=== PATIENT | female | born 2000 | race Caucasian/White ===

== ENCOUNTER 2021-09-10 21:02 | Emergency (ER) | payer OTHER ==
[2021-09-10 21:25] LABS: BASOPHILS % (AUTO) 0.2 %; EOSINOPHILS # (AUTO) 0.1 10^3/uL (0.0-0.7); EOSINOPHILS % (AUTO) 0.8 %; HGB - HEMOGLOBIN 12.6 g/dL (12.0-16.0); LYMPHOCYTES # (AUTO) 1.8 10^3/uL (1.5-3.5); LYMPHOCYTES % (AUTO) 29.7 %; MEAN CORPUSCULAR HEMOGLOBIN 30.5 pg (27.0-31.0); MEAN CORPUSCULAR HGB CONC 33.2 g/dL (32.0-36.0); MEAN PLATELET VOLUME 9.8 fL (7.9-10.8); MONOCYTES # (AUTO) 0.7 10^3/uL (0.0-1.0); MONOCYTES % (AUTO) 11.2 %; NEUTROPHILS # (AUTO) 3.6 10^3/uL (1.5-6.6); NEUTROPHILS % (AUTO) 57.8 %; PLT - PLATELET COUNT 223 10^3/uL (130-450); RED BLOOD COUNT 4.13 10^6/uL (4.20-5.40); RED CELL DISTRIBUTION WIDTH 11.4 % (12.0-15.0); WHITE BLOOD COUNT 6.2 x10^3/uL (4.8-10.8)
[2021-09-10 21:43] LABS: ALBUMIN 4.3 g/dL (3.2-5.5); ALBUMIN/GLOBULIN RATIO 1.2 (1.0-2.2); BILIRUBIN,TOTAL 0.6 mg/dL (0.2-1.0); CALCIUM 9.2 mg/dL (8.5-10.3); CREATININE 0.7 mg/dL (0.4-1.0); POTASSIUM 3.6 mmol/L (3.5-5.0); TOTAL PROTEIN 7.9 g/dL (6.7-8.2)
--- NOTE | 2021-09-10 21:54 | XRAY Report ---
PROCEDURE: Chest 1 View X-Ray INDICATIONS: Chest pain TECHNIQUE: One view of the chest was acquired. COMPARISON: None FINDINGS: Surgical changes and devices: None. Lungs and pleura: No pleural effusions or pneumothorax. Lungs are clear. Mediastinum: Mediastinal contours appear normal. Heart size is normal. Bones and chest wall: No suspicious bony lesions. Overlying soft tissues appear unremarkable. IMPRESSION: No acute cardiopulmonary pathology. Reviewed by: Walter Arndt MD on 09/10/2021 9:53 PM [facility] Approved by: Walter Arndt MD on 09/10/2021 9:53 PM [facility] Station ID: [id number]
--- NOTE | 2021-09-10 23:32 | ED Physician Documentation ---
PD HPI CHEST PAIN - Stated complaint Stated Complaint: CHEST PX,SOA - Chief complaint Chief Complaint: Cardiac - History obtained from History obtained from: Patient - History of Present Illness Timing - onset: How many weeks ago (1) Timing - onset during: Light activity (noted onset of this a few hours after working out in gym last week. Discomfort has continued despite activity. Some worse lying down at night. Has had most discomfort with eating.) Timing - duration: Weeks (1) Timing - details: Abrupt onset, Still present Quality: Aching, Indigestion, Pain Location: Substernal, Epigastric Radiation: Back. No: Jaw, Neck Improved by: Nothing Worsened by: Eating. No: Inspiration, Movement Associated symptoms: Nausea. No: Shortness of air, General Weakness, Palpitations Similar symptoms before: Has not had sx before Recently seen: Not recently seen Review of Systems Constitutional: denies: Fever Nose: denies: Rhinorrhea / runny nose, Congestion Throat: denies: Sore throat Respiratory: denies: Cough GI: reports: Abdominal Pain, Nausea. denies: Vomiting, Diarrhea, Bloody / black stool Skin: denies: Rash, Lesions Neurologic: denies: Generalized weakness, Near syncope PD PAST MEDICAL HISTORY - Past Medical History Past Medical History: No - Past Surgical History Past Surgical History: No - Present Medications Home Medications: Ambulatory Orders Medication Instructions Recorded Confirmed Famotidine [Pepcid] 20 mg PO BID 10 Days #20 tablet 09/11/21 Lidocaine Viscous 2% [Xylocaine 5 ml PO Q4H PRN #100 ml 09/11/21 Viscous 2%] Ondansetron Odt [Zofran] 4 mg TL Q6H PRN #10 tablet 09/11/21 Sucralfate [Carafate] 1 gm PO ACHS #20 tablet 09/11/21 - Allergies Allergies/Adverse Reactions: Allergies Allergy/AdvReac Type Severity Reaction Status Date / Time No Known Drug Allergies Allergy Verified 09/10/21 21:12 - Social History Does the pt smoke?: Yes Smoking Status: Current every day smoker Does the pt drink ETOH?: No Does the pt have substance abuse?: No - Immunizations Immunizations are current?: Yes - POLST Patient has POLST: No PD ED PE NORMAL - Vitals Vital signs reviewed: Yes - General General: Alert and oriented X 3, No acute distress, Well developed/nourished - Cardiac Cardiac: RRR, No murmur - Respiratory Respiratory: Clear bilaterally, Other (no chestwall tenderness) - Abdomen Abdomen: Normal bowel sounds, Soft, Non distended, No organomegaly, Other (tender without guarding in epigastric area. No percussion tenderness. ) - Back Back: No CVA TTP - Derm Derm: Normal color, Warm and dry - Extremities Extremities: Normal ROM s pain, No edema, No calf tenderness / cord - Neuro Neuro: Alert and oriented X 3, No motor deficit, Normal speech Results - Vitals Vitals: Oxygen O2 Source Room air - EKG (time done) 2104 Rate: Rate (enter#) (109) Rhythm: Sinus tachycardia [place]: Normal Intervals: Normal [place] QRS: Normal Ischemia: Normal ST segments. No: ST elevation c/w ischemia, ST depression Compare to prior EKG: Old EKG unavailable Computer interpretation: Agree with computer - Labs Labs: Laboratory Tests 09/10/21 09/10/21 09/10/21 21:19 21:19 21:19 WBC 6.2 RBC 4.13 L Hgb 12.6 Hct 38.0 MCV 92.0 MCH 30.5 MCHC 33.2 RDW 11.4 L Plt Count 223 MPV 9.8 Neut # (Auto) 3.6 Lymph # (Auto) 1.8 [place] # (Auto) 0.7 Eos # (Auto) 0.1 Baso # (Auto) 0.0 Absolute Nucleated RBC 0.00 Nucleated RBC % 0.0 Sodium 135 Potassium 3.6 Chloride 98 L Carbon Dioxide 29 Anion Gap 8.0 BUN 10 Creatinine 0.7 Estimated GFR (MDRD) 107 Glucose 95 Calcium 9.2 Total Bilirubin 0.6 AST 25 ALT 17 Alkaline Phosphatase 46 Troponin I High Sens < 2.3 L Total Protein 7.9 Albumin 4.3 Globulin 3.6 Albumin/Globulin Ratio 1.2 Lipase 21 L - Rads (name of study) chest Radiology: Prelim report reviewed (no acute process), See rad report PD MEDICAL DECISION MAKING - ED course Complexity details: considered differential (not really chest pain so much as epigastric pain. Seems some element of reflux. She claims heartburn/reflux often in the past, and currently seems more consistent gastritis/esophagitis. ), d/w patient Departure - Departure Disposition: 01 Home, Self Care Clinical Impression: Epigastric pain Condition: Stable Instructions: ED PUD Vs Gastritis Follow-Up: [facility] [Provider Group] Prescriptions: Sucralfate [Carafate] 1 gm PO ACHS #20 tablet Famotidine [Pepcid] 20 mg PO BID 10 Days #20 tablet Lidocaine Viscous 2% [Xylocaine Viscous 2%] 5 ml PO Q4H PRN #100 ml PRN Reason: Pain Ondansetron Odt [Zofran] 4 mg TL Q6H PRN #10 tablet PRN Reason: Nausea / Vomiting Comments: Try to stay well-hydrated. Minimize caffeine intake and also limit spicy foods. Use famotidine acid reducing medicine twice daily for the next 10 days. Also sucralfate to coat the stomach before meals and bedtime for the next several days as well. Follow the prescription instructions. To this add antacid such as Tums Maalox or Mylanta. Along with that you can use some 5 mL of viscous lidocaine to help with the stomach pains. Tylenol 500 mg 4 times a day can be used for pains. You can use the hydrocodone pain medicine we gave in the prepack this evening every 6-8 hours if needed for pain in the first day or 2. Do not use any anti-inflammatories such as ibuprofen or naproxen as that can further irritate your stomach. I would anticipate improvement over the next several days and resolution by 5 to 7 days. Follow-up with your primary care clinic if not improving in that timeframe and return if worse. If not improved well, subsequent evaluation could include arranging for scope of the stomach outpatient to evaluate for ulcer. Other testing possible would be a stool test to evaluate for an infectious process called H. pylori. These further tests are infrequently needed and so if you are improved in the short- term with the above medications, then no further testing is necessarily needed. You could rest off work the next day or 2 while initiating medications. [facility] Forms: Activity restrictions Discharge Date/Time: 09/11/21 00:34
[2021-09-10] MEDS: FAMOTIDINE 20 MG TABLET PO STA (23:57)
[2021-09-10] MEDS: LIDOCAINE VISCOUS 2% 15 ML UDC MM STA (23:57)
[2021-09-10] MEDS: MAG HYDROX/AL HYDROX/SIMETH 30 ML UDC PO STA (23:57)
[2021-09-10] MEDS: HYDROcod/ACET 5/325 Prepack 4 PO STA (23:58)
[2021-09-10] MEDS: HYDROcod/ACETAM 5/325 MG TABLET PO STA (23:58)
[2021-09-11 00:34] VITALS: BP 120/57
== END 2021-09-11 00:34 | disposition home or self-care (01) ==
LOC: ED 21:02
DX: R10.13 Epigastric pain (principal); F17.200 Nicotine dependence, unspecified, uncomplicated
CPT/HCPCS: 36415; 71045; 80053; 83690; 84484; 85025; 93005; 99284; A9270

== ENCOUNTER 2024-01-10 08:00 | Outpatient (CLI) | payer OTHER ==
[2024-01-10 16:19] LABS: BILIRUBIN,URINE NEGATIVE (NEGATIVE); GLUCOSE, URINE (UA) NEGATIVE (NEGATIVE); KETONES,URINE (UA) NEGATIVE (NEGATIVE); LEUKOCYTE ESTERASE, URINE NEGATIVE (NEGATIVE); NITRITE,URINE NEGATIVE (NEGATIVE); OCCULT BLOOD,URINE TRACE-INTA (NEGATIVE); PH,URINE 6.5 PH (5.0-7.5); PROTEIN,URINE NEGATIVE (NEGATIVE); UROBILINOGEN,URINE 0.2 (NORMAL) E.U./dL (NORMAL)
[2024-01-10 16:24] LABS: CLARITY,URINE CLEAR (CLEAR)
[2024-01-10 17:30] LABS: BACTERIA,URINE None Seen /HPF (None Seen); RBC,URINE 0-5 /HPF (0-5); SQUAMOUS EPITHELIAL CELL,UR FEW Squamous (<= Few); WBC,URINE 0-3 /HPF (0-5)
== END 2024-01-10 23:59 | disposition home or self-care (01) ==
LOC: LAB.WC 08:00
PROVIDERS: ATTEND Nurse Practitioner
DX: O09.91 Supervision of high risk pregnancy, unspecified, first trimester (principal)
CPT/HCPCS: 81001; 87086

== ENCOUNTER 2024-01-21 14:24 | Emergency (ER) | payer OTHER ==
[2024-01-21 15:22] LABS: BASOPHILS % (AUTO) 0.2 %; EOSINOPHILS # (AUTO) 0.2 10^3/uL (0.0-0.7); EOSINOPHILS % (AUTO) 1.9 %; HCT - HEMATOCRIT 36.3 % (37.0-47.0); HGB - HEMOGLOBIN 11.6 g/dL (12.0-16.0); LYMPHOCYTES # (AUTO) 2.2 10^3/uL (1.5-3.5); MEAN CORPUSCULAR HEMOGLOBIN 29.7 pg (27.0-31.0); MEAN CORPUSCULAR VOLUME 92.8 fL (81.0-99.0); MEAN PLATELET VOLUME 10.4 fL (7.9-10.8); MONOCYTES # (AUTO) 0.9 10^3/uL (0.0-1.0); NEUTROPHILS # (AUTO) 9.4 10^3/uL (1.5-6.6); NEUTROPHILS % (AUTO) 73.5 %; PLT - PLATELET COUNT 270 10^3/uL (130-450); RED BLOOD COUNT 3.91 10^6/uL (4.20-5.40); RED CELL DISTRIBUTION WIDTH 11.7 % (12.0-15.0); WHITE BLOOD COUNT 12.8 x10^3/uL (4.8-10.8)
[2024-01-21 15:35] LABS: ALBUMIN 3.8 g/dL (3.2-5.5); ALBUMIN/GLOBULIN RATIO 1.5 (1.0-2.2); ALKALINE PHOSPHATASE 47 IU/L (42-121); ALT ALANINE AMINOTRANSFERASE 13 IU/L (10-60); AST ASPARTATE AMINOTRANSFERASE 16 IU/L (10-42); BILIRUBIN,TOTAL 0.2 mg/dL (0.2-1.0); BUN - BLOOD UREA NITROGEN 9 mg/dL (6-20); CALCIUM 9.3 mg/dL (8.5-10.3); CARBON DIOXIDE - CO2 26 mmol/L (21-32); CHLORIDE 102 mmol/L (101-111); CREATININE 0.5 mg/dL (0.6-1.3); GFR - MDRD 154 (>89); GLUCOSE 83 mg/dL (74-104); POTASSIUM 3.4 mmol/L (3.5-4.5); SODIUM 135 mmol/L (135-145); TOTAL PROTEIN 6.4 g/dL (6.4-8.9)
[2024-01-21 15:38] LABS: LIPASE < 10 U/L (11-82)
[2024-01-21 17:30] LABS: BILIRUBIN,URINE NEGATIVE (NEGATIVE); GLUCOSE, URINE (UA) NEGATIVE (NEGATIVE); KETONES,URINE (UA) NEGATIVE (NEGATIVE); LEUKOCYTE ESTERASE, URINE TRACE (NEGATIVE); NITRITE,URINE NEGATIVE (NEGATIVE); OCCULT BLOOD,URINE TRACE-INTA (NEGATIVE); PH,URINE 6.5 PH (5.0-7.5); PROTEIN,URINE NEGATIVE (NEGATIVE); UROBILINOGEN,URINE 0.2 (NORMAL) E.U./dL (NORMAL)
[2024-01-21 17:31] LABS: CLARITY,URINE CLEAR (CLEAR)
[2024-01-21 17:49] LABS: BACTERIA,URINE Few /HPF (None Seen); RBC,URINE 0-5 /HPF (0-5); SQUAMOUS EPITHELIAL CELL,UR FEW Squamous (<= Few)
--- NOTE | 2024-01-21 19:15 | ED Physician Documentation ---
PD HPI ABD PAIN - Stated complaint Stated Complaint: LOW RT ABD PX - Chief complaint Chief Complaint: Abd Pain - History obtained from History obtained from: Patient - Additional information Additional information: 23-year-old female who is approximately 9 weeks with twins at and has already had a first trimester ultrasound showing IUP presents with right lower pelvis pain that has been intermittent for the last couple of days, it is a pressure type sensation, sometimes more sharp. She feels some pressure when she has to urinate, denies dysuria urgency or frequency, no atypical vaginal discharge, no fever or flank pain. She has not had nausea or vomiting. She denies any vaginal discharge. She has not attempted any treatment for this issue. PD PAST MEDICAL HISTORY - Past Medical History Past Medical History: No - Past Surgical History Past Surgical History: No - Present Medications Home Medications: Ambulatory Orders Medication Instructions Recorded Confirmed Famotidine [Pepcid] 20 mg PO BID 10 Days #20 tablet 09/11/21 Lidocaine Viscous 2% [Xylocaine 5 ml PO Q4H PRN #100 ml 09/11/21 Viscous 2%] Ondansetron Odt [Zofran] 4 mg TL Q6H PRN #10 tablet 09/11/21 Sucralfate [Carafate] 1 gm PO ACHS #20 tablet 09/11/21 cephALEXin [Keflex] 500 mg PO BID #14 cap 01/21/24 - Allergies Allergies/Adverse Reactions: Allergies Allergy/AdvReac Type Severity Reaction Status Date / Time No Known Drug Allergies Allergy Verified 01/21/24 14:33 - Social History Does the pt smoke?: Yes Smoking Status: Current every day smoker Does the pt drink ETOH?: No Does the pt have substance abuse?: No - Immunizations Immunizations are current?: Yes - POLST Patient has POLST: No PD ED PE NORMAL - Vitals Vital signs reviewed: Yes - General General: Alert and oriented X 3, No acute distress, Well developed/nourished - HEENT HEENT: Atraumatic, Moist mucous membranes - Cardiac Cardiac: RRR - Respiratory Respiratory: No respiratory distress, Clear bilaterally - Abdomen Abdomen: Normal bowel sounds, Soft, Non distended, Other (Today mild tenderness in the low suprapubic region and right pelvis) - Back Back: No CVA TTP, No spinal TTP - Derm Derm: Normal color, Warm and dry Results - Vitals Vitals: Vital Signs - 24 hr 01/21/24 14:28 Temperature 36.2 C L Heart Rate 85 Respiratory 17 Rate Blood Pressure 111/65 O2 Saturation 97 Oxygen O2 Source Room air - Labs Labs: Laboratory Tests 01/21/24 01/21/24 01/21/24 15:08 15:08 17:18 WBC 12.8 H RBC 3.91 L Hgb 11.6 L Hct 36.3 L MCV 92.8 MCH 29.7 MCHC 32.0 RDW 11.7 L Plt Count 270 MPV 10.4 Neut # (Auto) 9.4 H Lymph # (Auto) 2.2 [place] # (Auto) 0.9 Eos # (Auto) 0.2 Baso # (Auto) 0.0 Absolute Nucleated RBC 0.00 Nucleated RBC % 0.0 Sodium 135 Potassium 3.4 L Chloride 102 Carbon Dioxide 26 Anion Gap 7.0 BUN 9 Creatinine 0.5 L Estimated GFR (MDRD) 154 Glucose 83 Calcium 9.3 Total Bilirubin 0.2 AST 16 ALT 13 Alkaline Phosphatase 47 Total Protein 6.4 Albumin 3.8 Globulin 2.6 Albumin/Globulin Ratio 1.5 Lipase < 10 L Beta HCG, Quant > 411974.0 Urine Color YELLOW Urine Clarity CLEAR Urine pH 6.5 Ur Specific [place] 1.010 Urine Protein NEGATIVE Urine Glucose (UA) NEGATIVE Urine Ketones NEGATIVE Urine Occult Blood TRACE-INTA Urine Nitrite NEGATIVE Urine Bilirubin NEGATIVE Urine Urobilinogen 0.2 (NORMAL) Ur Leukocyte Esterase TRACE H Urine RBC 0-5 Urine WBC 4-5 Ur Squamous Epith Cells FEW Squamous Urine Bacteria Few Urine Culture Comments INDICATED - Rads (name of study) No standard instances Relevant Findings:: Prelim report reviewed PD Medical Decision Making - ED course Complexity details: reviewed results, considered differential, d/w patient ED course: This is a well-appearing 23-year-old female who is 9 weeks presents with right to pelvis and suprapubic pain intermittently over the course last couple days as described in HPI. Patient is well-appearing here, afebrile nontoxic, she has no nausea or vomiting, no other concerning symptoms. Differentials considered included UTI, related pains, ovarian cyst or torsion, appendicitis, ureteral stone. Patient's labs reviewed and show possible UTI though only through 4-5 WBCs, and we are awaiting culture. Labs largely unremarkable aside from mild elevation in the white blood cell count 12. A prelim report of the ultrasound reveals a twin , corpus luteum cyst, no acute findings. Will treat the patient for UTI and bacteria in pending culture and think this is likely the cause of her pain though it may be related as well. There is not appear to be torsion and I have low suspicion for appendicitis given the location of the pain and lack of additional symptoms. Patient discharged home in stable condition, advised to follow-up with her PCP or OB in the next week if ongoing symptoms, return if she develops a fever or worsening symptoms. Departure - Departure Disposition: Home, Self Care Clinical Impression: Urinary tract infection Qualifiers: Urinary tract infection type: acute cystitis Hematuria presence: without hematuria Qualified Code(s): N30.00 - Acute cystitis without hematuria Condition: Good Instructions: ED UTI Cystitis Female Prescriptions: cephALEXin [Keflex] 500 mg PO BID #14 cap Comments: Please take the antibiotics as prescribed. I have also sent a urine culture and if this determines we need to give you different antibiotics, we will notify you by phone. You can take Tylenol as needed for the discomfort. Please follow-up with your OB as needed and return if you develop any vaginal bleeding, fever or new concerns. Forms: PCP List
[2024-01-21 19:30] VITALS: BP 100/58; O2SAT 98
--- NOTE | 2024-01-21 21:57 | Ultrasound Report ---
PROCEDURE: OB 1st Trimester w/TV INDICATIONS: 9w IUP, right pelvic pain ? ovarian cyst OUTSIDE/PRIOR DATING DATA: Last menstrual period (LMP): 11/15/2023. LMP-based estimated date of delivery ([facility]): 08/21/2024. First dating scan (date and location): 09/15. Estimated date of delivery ([facility]) from first dating scan: 08/22/2024. TECHNIQUE: Real-time scanning was performed of the fetus and maternal pelvic organs, with image documentation. Endovaginal scanning was also performed to better visualize the fetus and maternal ovaries. COMPARISON: None. FINDINGS: Diamniotic and dichorionic intrauterine gestations are seen. Embryo: Ransom-rump length for twin A measures 2.59 cm with estimated gestational age of 9 weeks, 3 d ays, 27.8%. Ransom-rump length for twin B measures 2.5 cm with estimated gestational age of 9 weeks, 2 days, 23.5% . Heart rate: 169 bpm for twin A and 162 bpm for twin B. Other: No perigestational fluid collection. Measurement variability in dating: +/- 4 weeks by LMP, +/- 7 days by mean sac diameter (use before 6 weeks gestation if crown-rump length not able to be measured), +/- 5 days by crown-rump length (6-12 weeks gestation). Maternal organs: Ovaries appear within normal limits. 2 right-sided corpus luteal cysts are seen paulina sures 1.9 x 1.5 x 1.8 cm, and 1.6 x 1.4 x 2 cm in size. IMPRESSION: 1. Diamniotic and dichorionic intrauterine twin gestations as above. 2. 2 corpus luteal cysts are noted in right ovary as above. Reviewed by: Walter Lamar MD on 01/21/2024 9:56 PM PDT Approved by: Walter Lamar MD on 01/21/2024 9:56 PM PDT Station ID: [id number]
== END 2024-01-21 19:41 | disposition home or self-care (01) ==
LOC: ED 14:24
DX: O23.11 Infections of bladder in pregnancy, first trimester (principal); B96.89 Other specified bacterial agents as the cause of diseases classified elsewhere; O34.81 Maternal care for other abnormalities of pelvic organs, first trimester; N83.11 Corpus luteum cyst of right ovary; O99.331 Smoking (tobacco) complicating pregnancy, first trimester; F17.200 Nicotine dependence, unspecified, uncomplicated; Z3A.09 9 weeks gestation of pregnancy
CPT/HCPCS: 36415; 80053; 81001; 83690; 84702; 85025; 87086; 99284

== ENCOUNTER 2024-02-02 08:00 | Outpatient (CLI) | payer OTHER ==
[2024-02-02 20:52] LABS: CHLAMYDIA TRACHOMATIS DNA NEGATIVE (NEGATIVE); NEISSERIA GONORRHOEAE DNA NEGATIVE (NEGATIVE); TRICHOMONAS VAGINALIS DNA NEGATIVE (NEGATIVE)
== END 2024-02-02 23:59 | disposition home or self-care (01) ==
LOC: LAB.WC 08:00
PROVIDERS: ATTEND Obstetrics & Gynecology
DX: Z11.3 Encounter for screening for infections with a predominantly sexual mode of transmission (principal)
CPT/HCPCS: 87491; 87591; 87661

== ENCOUNTER 2024-03-10 13:58 | Outpatient (CLI) | payer OTHER ==
[2024-03-10 16:19] LABS: THYROID STIMULATING HORMONE 0.79 uIU/mL (0.34-5.60)
== END 2024-03-10 13:59 | disposition home or self-care (01) ==
LOC: LAB 13:58
PROVIDERS: ATTEND Obstetrics & Gynecology
DX: O09.91 Supervision of high risk pregnancy, unspecified, first trimester (principal); O99.891 Other specified diseases and conditions complicating pregnancy; R94.6 Abnormal results of thyroid function studies
CPT/HCPCS: 36415; 82950; 84443

== ENCOUNTER 2024-03-15 16:44 | Outpatient (CLI) | payer OTHER | END 2024-03-15 16:45 | disposition home or self-care (01) | LOC: LAB 16:44 | PROVIDERS: ATTEND Obstetrics & Gynecology | DX: Z36.89 Encounter for other specified antenatal screening (principal) | CPT/HCPCS: 36415; 81511 ==

== ENCOUNTER 2024-04-08 08:25 | Outpatient (CLI) | payer OTHER ==
[2024-04-08 09:03] LABS: BASOPHILS % (AUTO) 0.2 %; EOSINOPHILS # (AUTO) 0.7 10^3/uL (0.0-0.7); EOSINOPHILS % (AUTO) 6.1 %; HCT - HEMATOCRIT 32.1 % (37.0-47.0); HGB - HEMOGLOBIN 10.3 g/dL (12.0-16.0); LYMPHOCYTES # (AUTO) 1.5 10^3/uL (1.5-3.5); LYMPHOCYTES % (AUTO) 12.8 %; MEAN CORPUSCULAR HEMOGLOBIN 30.7 pg (27.0-31.0); MEAN CORPUSCULAR HGB CONC 32.1 g/dL (32.0-36.0); MEAN CORPUSCULAR VOLUME 95.5 fL (81.0-99.0); MEAN PLATELET VOLUME 9.9 fL (7.9-10.8); MONOCYTES # (AUTO) 0.5 10^3/uL (0.0-1.0); MONOCYTES % (AUTO) 4.1 %; NEUTROPHILS # (AUTO) 8.7 10^3/uL (1.5-6.6); NEUTROPHILS % (AUTO) 74.7 %; PLT - PLATELET COUNT 218 10^3/uL (130-450); RED BLOOD COUNT 3.36 10^6/uL (4.20-5.40); RED CELL DISTRIBUTION WIDTH 12.7 % (12.0-15.0); WHITE BLOOD COUNT 11.6 x10^3/uL (4.8-10.8)
[2024-04-09 05:09] LABS: HBsAG SCREEN Negative (Negative)
[2024-04-09 23:07] LABS: HIV SCREEN 4TH GENERATION Non Reactive (Non Reactive)
[2024-04-10 03:07] LABS: HCV AB Non Reactive (Non Reactive)
[2024-04-10 14:08] LABS: VARICELLA-ZOSTER AB IGG 484 index (Immune >165)
== END 2024-04-08 08:26 | disposition home or self-care (01) ==
LOC: LAB 08:25
PROVIDERS: ATTEND Nurse Practitioner
DX: O09.91 Supervision of high risk pregnancy, unspecified, first trimester (principal); Z36.89 Encounter for other specified antenatal screening
CPT/HCPCS: 36415; 85025; 86592; 86762; 86787; 86803; 86850; 86900; 86901; 87340; 87389